=== PATIENT | female | born 1985 | race Caucasian/White ===

== ENCOUNTER 2019-12-14 12:20 | Outpatient (RCR) | payer OTHER, SELFPAY ==
--- NOTE | 2019-12-14 15:56 | PTOPEVAL ---
Thank you for referring this [facility] to [facility]. Please review, sign, date and return this plan of care PEARL. Pt referred to therapy due to ankle injury. She requires additional skilled therapy to address noted impairments from evaluation of decreased strength, decreased balance and decreased functional mobility with walking and steps. Recommend cont PT 1x/wk x 4 wk. I agree with and certify that the following plan of care is medically necessary. Referring Physician Date Attending Provider: Peewee Nj MD Referring Provider: *PT Outpatient Evaluation Start: 12/14/19 12:41 Freq: Status: Active Protocol: Document 12/14/19 12:37 CAP (Rec: 12/14/19 13:24 CAP [id number]) Therapy Assessment Status Assessment Status Assessment Status Evaluation Outpatient Past Medical History Neurological History Hx Migraine Yes Evaluation Information Problem Diagnosis right ankle sprain Onset 10/19/19 Cause fall Subjective Information She sprained her ankle when Query Text:As Reported By Patient/ she sliped on ice landing on Family her foot. She landed on the outside of her right ankle. She was seen at [facility] for initial x-ray, then to [facility] 2 days later. She was given predison and 800 mg motrin. She was placed in a walking boot. She wore the boot for 2 wk. She had a f/u with the othropedic MD. She was given an aircast to wear, but she is not wearing the brace. She reports her biggest problem is pain at the end of the day and stiffness in the am. She performs ankle motion to improve pain. She descends step now sideways . She denies problems ascending steps or performing normal walking activities. Diagnostic Tests X-Rays For This Problem Yes: bone contusion Prior Level of Function Activity Level (Last 3 Months) Occupation professional Stir Activity of Daily Living Ability Independent Indoor/Home Mobility Independent Community Mobility Independent Stairs Ability Independent Cooking Yes Cleaning Yes Laundry Yes
--- NOTE | 2020-01-20 11:46 | PCPTNOTE ---
Admitting Provider: Attending Provider: Peewee Nj MD Patient:Ashli Nina Date of :1985 Patient has not returned for any further treatments since 12/14/2019, therefore she will be discharged from therapy at this time. The goals have not been achieved. Thank you for referring this patient to [facility]. Please review, sign, date and return this discharge summary PEARL. I have been updated about the patient's current status and I agree with discharge from the above service at this time. Referring Physician Date
== END 2020-01-20 12:37 | disposition hospice, home (50) ==
LOC: ANHPT 12:20
PROVIDERS: Visit Provider Orthopaedic Surgery
DX: S93.401D Sprain of unspecified ligament of right ankle, subsequent encounter (principal)
CPT/HCPCS: 97161

== ENCOUNTER 2021-07-22 13:13 | Emergency (ER) | payer OTHER, SELFPAY ==
[2021-07-22 13:27] VITALS: BP 98/63; PULSE 89; RESP 18; TEMP 36.5; O2SAT 100
--- NOTE | 2021-07-22 14:47 | ED.URI ---
HPI - URI/Sore Throat General Chief Complaint: Upper Respiratory Infection Stated Complaint: Congestion,Ear Pain Time Seen by Provider: 07/22/21 14:45 Source: patient, RN notes reviewed and old records reviewed Mode of arrival: ambulatory Limitations: no limitations History of Present Illness HPI Narrative: 36 year old female presents to [facility] care with complaints of sinus congestion and nasal drainage with left ear pain for the past week duration.Patient denies any known fevers, chills or sweats.demies any sore throat or any acute cough. Patient states her sinuses are messed up. She reports that she has taken some OTC sinus medication without improvement. MD elicited complaint: rhinorrhea, nasal congestion and other (left ear pain) Related Data Home Medications Medication Instructions Recorded Confirmed albuterol sulfate 90 mcg INHALATION BID 11/15/19 11/15/19 liraglutide [Victoza 2-Néstor] mg SUBCUT 07/22/21 07/22/21 terbinafine HCl mg 07/22/21 Allergies Allergy/AdvReac Type Severity Reaction Status Date / Time Penicillins Allergy Intermediate Hives / Verified 07/22/21 14:36 Red Face amoxicillin Allergy Mild Unknown Verified 07/22/21 14:36 clavulanic acid Allergy Mild Unknown Verified 07/22/21 14:36 sodium fluoride Allergy Unknown Unknown Verified 07/22/21 14:36 theraflu Allergy Intermediate Unknown Uncoded 07/22/21 14:36 Review of Systems Review of Systems: CONSTITUTIONAL: Denies fever, chills, or sweats. EYES: Denies visual changes, redness, or discharge. ENT: positive for rhinorrhea, congestion,no sore throat,positive for left ear pain and pressure CARDIOVASCULAR: Denies chest pain, palpitations, or edema. RESPIRATORY: Denies cough or dyspnea. GASTROINTESTINAL: Denies abdominal pain, nausea, vomiting, or diarrhea. GENITOURINARY: Denies dysuria or hematuria. SKIN: Denies rash or itching. MUSCULOSKELETAL: Denies back pain, joint pain, or myalgia. NEUROLOGIC: Denies headache, numbness, or weakness. PSYCHIATRIC: Denies anxiety or depression. All systems reviewed & are unremarkable except as noted in HPI and below PMFSH Past Medical History Medical History (Updated 07/24/21 @ 15:18 by Jacquelyn Leal NP) Ankle sprain Asthma Migraine Nail fungus Surgical History Surgical History (Updated 07/24/21 @ 15:17 by Jacquelyn Leal NP) H/O tubal ligation Family History Family History Mother Hypertension Father Cancer Social History Social History Additional smoking assessment comments: Smoked for 12 years Alcohol intake: current Alcohol use details: Occasional Additional living arrangements comments: Fianc? Antionio Additional occupation/education comments: Self employed Gender identity (if verbalized by the patient): Female Comments At time of signature, agree with nursing past medical, surgical, social and family history. There is no relevant family history pertinent to the presenting complaint Exam Narrative: GENERAL: Well-appearing, well-nourished, and in no acute distress. HEAD: Normocephalic, atraumatic. EYES: PERRLA and EOMI. ENT: Nares mild redness,clear rhinorrhea no epistaxis. Mucous membranes moist.TM's normal with good light reflex, left ear canal crusted and excoriated with mild swelling, throat with some redness no lesions or exudates, no tonsil swelling, post nasal drainage NECK: Supple.no lymphadenopathy CHEST: Clear to auscultation. No respiratory distress.no tachypnea, or acute cough SAO2 100% on room air. HEART: Regular rate and rhythm. No murmur heard. Normal peripheral pulses. ABDOMEN: Soft, nontender, nondistended, normal active bowel sounds. EXTREMITIES: Normal range of motion. No edema. SKIN: Warm, dry, no rash. NEURO: No focal deficits. Alert and oriented x3. Course Vital Signs Vital signs: Vital Signs Temperature 36.5 C 07/22/21 13
== END 2021-07-22 15:14 | disposition home or self-care (01) ==
PROVIDERS: Emergency Provider Registered Nurse; PCP Family Medicine
DX: J06.9 Acute upper respiratory infection, unspecified (principal); H60.90 Unspecified otitis externa, unspecified ear
CPT/HCPCS: 99213; G0463

== ENCOUNTER 2021-11-04 17:54 | Emergency (ER) | payer OTHER, SELFPAY ==
--- NOTE | ~2021-11-04 | XR_ITS ---
EXAMINATION: XR ankle RT min 3V EXAM DATE: 11/04/2021 18:16 INDICATION: Fall, Rt Ankle Pain, Laterally Swelling . Initial encounter. TECHNIQUE: Right ankle frontal, lateral and oblique projections obtained and reviewed. Comparison is made to prior examination from 11/08/2019. FINDINGS: The right ankle mortise appears intact. There are no acute fractures or dislocations iden tified. There is no subcutaneous gas. The soft tissue is unremarkable. There are no radiopaque fo reign bodies. IMPRESSION: 1. XR ankle RT min 3V exam without acute osseous findings. Reviewed, dictated and finalized at location A. R WOOD SAWYER
--- NOTE | ~2021-11-04 | XR_ITS ---
EXAMINATION: XR ankle LT min 3V EXAM DATE: 11/04/2021 18:16 INDICATION: Fall, Twisting Lt Ankle, Lateral Swelling. TECHNIQUE: Left ankle frontal, lateral and oblique projections obtained and reviewed. There is no pr ior study for comparison. FINDINGS: The left ankle mortise appears intact. There are no acute fractures or dislocations ident ified. There is no subcutaneous gas. There is soft tissue swelling over the ankle anterolaterally. There are no radiopaque foreign bodies. IMPRESSION: 1. XR ankle LT min 3V exam without acute osseous findings. 2. Soft tissue swelling. Reviewed, dictated and finalized at location A. ATION MANAGER
[2021-11-04 18:04] VITALS: BP 113/70; PULSE 75; RESP 16; TEMP 37.3; O2SAT 99
--- NOTE | 2021-11-04 18:54 | ED.LOWEXIN ---
HPI - Extremity Injury (Lower) General Chief Complaint: Extremity Injury, Lower Stated Complaint: Left and right ankle Pain Time Seen by Provider: 11/04/21 18:54 Source: patient, RN notes reviewed and old records reviewed Mode of arrival: ambulatory Limitations: no limitations History of Present Illness HPI Narrative: 36-year-old female presents to the [facility] with complaints of bilateral ankle pain after falling out of a door. Had been soaking her ankle. Swelling noted. Full range of motion with positive pedal pulses. Sensation intact and capillary refill under 2 seconds. Denies hitting head. No loss of consciousness. No back pain, chest pain or abdominal pain Related Data Allergies Allergy/AdvReac Type Severity Reaction Status Date / Time Penicillins Allergy Intermediate Hives / Verified 07/22/21 14:36 Red Face amoxicillin Allergy Mild Unknown Verified 07/22/21 14:36 clavulanic acid Allergy Mild Unknown Verified 07/22/21 14:36 sodium fluoride Allergy Unknown Unknown Verified 07/22/21 14:36 theraflu Allergy Intermediate Unknown Uncoded 07/22/21 14:36 Review of Systems Review of Systems: All systems reviewed & are unremarkable except as noted in HPI and below Constitutional: Constitutional: Reports no additional constitutional complaints, Denies chills and Denies fever(s) Eyes: Eyes: Reports no additional eye complaints ENT: Reports system reviewed and no additional complaints, except as documented Cardiovascular: Cardiovascular: Reports no additional cardiovascular complaints and Denies chest pain Respiratory: Respiratory: Reports no additional respiratory complaints, Denies cough and Denies dyspnea Gastrointestinal: Gastrointestinal: Reports no additional gastrointestinal complaints, Denies abdominal pain, Denies nausea and Denies vomiting Musculoskeletal: Musculoskeletal: Reports as per HPI, Reports arthralgias (Left and right ankle) and Reports joint swelling (Left lateral) Integumentary/Breasts: Skin/Breast: Reports system reviewed and no additional complaints, except as docu and Denies rash Neurologic: Reports system reviewed and no additional complaints, except as documented, Denies headache(s), Denies focal weakness, Denies numbness and Denies weakness Psychiatric: Psychiatric: Reports no additional psychiatric complaints Allergic/Immunologic: Allergic/Immunologic: Reports no additional allergic/immunologic complaints PMFSH Past Medical History Medical History Ankle sprain Asthma Migraine Nail fungus Surgical History Surgical History H/O tubal ligation Family History Family History Mother Hypertension Father Cancer Social History Social History Additional smoking assessment comments: Smoked for 12 years Alcohol intake: current Alcohol use details: Occasional Additional living arrangements comments: Fianc? Antionio Additional occupation/education comments: Self employed Gender identity (if verbalized by the patient): Female Comments At the time of my signature, I reviewed and agree with the nursing past medical, surgical, social, and family history. There is no relevant family history pertinent to the patient complaint. Exam Const: General: healthy appearing, no acute distress and alert Nutritional Appearance: well nourished Orientation/consciousness: patient oriented x3 Limitations: no limitations HENMT: Head: normal to inspection Eyes: Pupils: Equal, round and reactive pupils present Neck: Neck: normal visual inspection, no lymphadenopathy and no meningeal signs Chest: Chest palpation & inspection: normal inspection of the chest Resp: Effort & Inspection: normal respiratory effort Auscultation: clear to auscultation bilaterally Cardio: Rate: regular rate Rhy
== END 2021-11-04 19:10 | disposition home or self-care (01) ==
PROVIDERS: Emergency Provider Nurse Practitioner; PCP Family Medicine
DX: S93.402A Sprain of unspecified ligament of left ankle, initial encounter (principal); S93.401A Sprain of unspecified ligament of right ankle, initial encounter; W19.XXXA Unspecified fall, initial encounter; J45.909 Unspecified asthma, uncomplicated; Z87.891 Personal history of nicotine dependence
CPT/HCPCS: 73610; 99214; G0463

== ENCOUNTER 2022-05-13 15:05 | Emergency (ER) | payer OTHER, SELFPAY ==
[2022-05-13 15:14] VITALS: BP 107/65; PULSE 86; RESP 16; TEMP 37.1; O2SAT 99
--- NOTE | 2022-05-13 15:17 | ED.GENADULT ---
HPI - General Adult General Chief complaint: Unspecified Stated complaint: right breast pain Time Seen by Provider: 05/13/22 15:17 Source: patient, RN notes reviewed and old records reviewed Mode of arrival: ambulatory Limitations: no limitations History of Present Illness HPI narrative: 37-year-old female presents to the [facility] with complaints of left breast discomfort. Patient states that her breast started itching on Thursday. Reports she has a history of the same, had a mammogram and ultrasound was referred to surgery. Never followed up with general surgery Last time had similar was January 2022 Related Data Home Medications Medication Instructions Recorded Confirmed clonazepam 0.5 mg tablet 1 tablet PO BID 05/13/22 05/13/22 escitalopram oxalate 5 mg tablet 1 tablet PO DAILY 05/13/22 05/13/22 famotidine 20 mg tablet 1 tablet PO BID 05/13/22 05/13/22 liraglutide 0.6 mg/0.1 mL (18 mg/3 1 ea subcut DAILY 05/13/22 05/13/22 mL) subcutaneous pen injector ([employer] 2-Néstor) topiramate 100 mg tablet 1 tablet PO DAILY 05/13/22 05/13/22 Allergies Allergy/AdvReac Type Severity Reaction Status Date / Time Penicillins Allergy Intermediate Hives / Verified 05/13/22 15:13 Red Face amoxicillin Allergy Mild Unknown Verified 05/13/22 15:13 clavulanic acid Allergy Mild Unknown Verified 05/13/22 15:13 acetaminophen Allergy Unknown Unknown Verified 05/13/22 15:14 [From Theraflu Flu-Chest Congestion] chlorpheniramine Allergy Unknown Unknown Verified 05/13/22 15:14 [From Theraflu Flu-Sore Throat] guaifenesin Allergy Unknown Unknown Verified 05/13/22 15:14 [From Theraflu Flu-Chest Congestion] pheniramine Allergy Unknown Unknown Verified 05/13/22 15:14 [From Theraflu Flu-Sore Throat] phenylephrine Allergy Unknown Unknown Verified 05/13/22 15:14 [From Theraflu Flu-Sore Throat] pseudoephedrine Allergy Unknown Unknown Verified 05/13/22 15:14 [From Theraflu Flu-Sore Throat] sodium fluoride Allergy Unknown Unknown Verified 05/13/22 15:13 Review of Systems Review of Systems: All systems reviewed & are unremarkable except as noted in HPI and below Constitutional: Constitutional: Reports no additional constitutional complaints, Denies chills and Denies fever(s) Eyes: Eyes: Reports no additional eye complaints ENT: Reports system reviewed and no additional complaints, except as documented Cardiovascular: Cardiovascular: Reports no additional cardiovascular complaints Respiratory: Respiratory: Reports no additional respiratory complaints Gastrointestinal: Gastrointestinal: Reports no additional gastrointestinal complaints Musculoskeletal: Musculoskeletal: Reports no additional musculoskeletal complaints Integumentary/Breasts: Skin/Breast: Reports as per HPI Neurologic: Reports system reviewed and no additional complaints, except as documented Psychiatric: Psychiatric: Reports no additional psychiatric complaints Allergic/Immunologic: Allergic/Immunologic: Reports no additional allergic/immunologic complaints PMF Past Medical History Medical History Ankle sprain Asthma Migraine Nail fungus Surgical History Surgical History H/O tubal ligation Family History Family History Mother Hypertension Father Cancer Social History Social History Additional smoking assessment comments: Smoked for 12 years Alcohol intake: current Alcohol use details: Occasional Additional living arrangements comments: Fianc? Antionio Additional occupation/education comments: Self employed Gender identity (if verbalized by the patient): Female Comments At the time of my signature, I reviewed and agree with the nursing past medical, surgical, social, and f
[2022-05-13 15:19] VITALS: BP 107/65; PULSE 86; RESP 16; TEMP 37.1; O2SAT 99
== END 2022-05-13 15:55 | disposition home or self-care (01) ==
PROVIDERS: Emergency Provider Nurse Practitioner
DX: N61.0 Mastitis without abscess (principal); J45.909 Unspecified asthma, uncomplicated; Z87.891 Personal history of nicotine dependence
CPT/HCPCS: 99213; G0463

== ENCOUNTER 2025-05-08 08:25 | Emergency (ER) | payer OTHER, SELFPAY ==
[2025-05-08 08:35] VITALS: BP 119/81; PULSE 68; RESP 12; TEMP 36.5; O2SAT 99
--- NOTE | 2025-05-08 08:35 | ED_ITS ---
HPI - General Adult General Chief complaint: Urogenital-Female Stated complaint: Right Side Hip/Flank Pain Related Data Home Medications ?Medication ?Instructions ?Recorded ?Confirmed ?Last Taken ?Type clonazepam 0.5 mg tablet 1 tablet PO BID 05/13/22 05/13/22 Unknown History escitalopram oxalate 5 mg tablet 1 tablet PO DAILY 05/13/22 05/13/22 Unknown History famotidine 20 mg tablet 1 tablet PO BID 05/13/22 05/13/22 Unknown History liraglutide 0.6 mg/0.1 mL (18 mg/3 1 ea subcut DAILY 05/13/22 05/13/22 Unknown History mL) subcutaneous pen injector ([employer] 2-Néstor) topiramate 100 mg tablet 1 tablet PO DAILY 05/13/22 05/13/22 Unknown History Allergies Allergy/AdvReac Type Severity Reaction Status Date / Time Penicillins Allergy Intermediate Hives / Verified 05/13/22 15:13 Red Face amoxicillin Allergy Mild Unknown Verified 05/13/22 15:13 clavulanic acid Allergy Mild Unknown Verified 05/13/22 15:13 acetaminophen (From Theraflu Allergy Unknown Unknown Verified 05/13/22 15:14 Flu-Chest Congestion) chlorpheniramine (From Allergy Unknown Unknown Verified 05/13/22 15:14 Theraflu Flu-Sore Throat) guaifenesin (From Theraflu Allergy Unknown Unknown Verified 05/13/22 15:14 Flu-Chest Congestion) pheniramine (From Theraflu Allergy Unknown Unknown Verified 05/13/22 15:14 Flu-Sore Throat) phenylephrine (From Theraflu Allergy Unknown Unknown Verified 05/13/22 15:14 Flu-Sore Throat) pseudoephedrine (From Allergy Unknown Unknown Verified 05/13/22 15:14 Theraflu Flu-Sore Throat) sodium fluoride Allergy Unknown Unknown Verified 05/13/22 15:13 [facility] Past Medical History Medical History Ankle sprain Asthma Migraine Nail fungus Surgical History Surgical History H/O tubal ligation Family History Family History Mother Hypertension Father Cancer Social History Social History Additional smoking assessment comments: Smoked for 12 years Alcohol intake: current Alcohol use details: Occasional Living arrangements: with family Additional living arrangements comments: Fianc? Antionio Occupation/Education: occupation Additional occupation/education comments: Self employed Gender identity (if verbalized by the patient): Female Discharge Plan Discharge Patient Language: Romanian Prescriptions: No Action clonazepam 0.5 mg tablet 1 tablet PO BID famotidine 20 mg tablet 1 tablet PO BID topiramate 100 mg tablet 1 tablet PO DAILY escitalopram oxalate 5 mg tablet 1 tablet PO DAILY Victoza 2-Néstor 0.6 mg/0.1 mL (18 mg/3 mL) pen injector 1 ea SUBCUT DAILY clindamycin HCl 300 mg capsule 300 mg PO Q8H 7 Days Qty: 21 0RF Follow-up/Referrals: PHYSICIAN NOT ON STAFF,NONSTAFF [Primary Care Provider] -
[2025-05-08 08:44] LABS: EDUAAPPEAR Clear; EDUABILI Negative (Negative); EDUABLOOD Negative (Negative); EDUACOLOR1 Yellow; EDUAGLUCOSE Negative (Negative); EDUAKETONE Negative (Negative); EDUALEUKO Negative (Negative); EDUANITRATE Negative (Negative); EDUAPH 5.5; EDUAPROTEIN Negative (Negative); EDUASPGRAVITY 1.025; EDUAUROBILI 0.2
--- NOTE | 2025-05-08 08:59 | ED_ITS ---
HPI - Back Pain/Injury General Chief Complaint: Back Pain/Injury Stated Complaint: Right Side Hip/Flank Pain Time Seen by Provider: 05/08/25 09:00 Source: patient and RN notes reviewed Mode of arrival: ambulatory Limitations: no limitations History of Present Illness HPI Narrative: 40-year-old female presents with concern for right low back pain. She reports history of sciatica, however this pain is not radiating down the right side like it usually does that originates same place. She denies any injury or trauma. 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 She reports pain is been for about a week. She denies any loss of bowel or bladder function, perianal anesthesia, weakness in any extremity, abdominal pain, fever. She reports trying meloxicam without relief MD elicited complaint: back pain Related Data Home Medications ?Medication ?Instructions ?Recorded ?Confirmed ?Last Taken ?Type clonazepam 0.5 mg tablet 1 tablet PO BID 05/13/22 05/13/22 Unknown History escitalopram oxalate 5 mg tablet 1 tablet PO DAILY 05/13/22 05/13/22 Unknown History famotidine 20 mg tablet 1 tablet PO BID 05/13/22 05/13/22 Unknown History liraglutide 0.6 mg/0.1 mL (18 mg/3 1 ea subcut DAILY 05/13/22 05/13/22 Unknown History mL) subcutaneous pen injector ([employer] 2-Néstor) topiramate 100 mg tablet 1 tablet PO DAILY 05/13/22 05/13/22 Unknown History albuterol sulfate 90 mcg/actuation inhalation 05/08/25 Unknown History aerosol inhaler Allergies Allergy/AdvReac Type Severity Reaction Status Date / Time Penicillins Allergy Intermediate Hives / Verified 05/13/22 15:13 Red Face amoxicillin Allergy Mild Unknown Verified 05/13/22 15:13 clavulanic acid Allergy Mild Unknown Verified 05/13/22 15:13 acetaminophen (From Theraflu Allergy Unknown Unknown Verified 05/13/22 15:14 Flu-Chest Congestion) chlorpheniramine (From Allergy Unknown Unknown Verified 05/13/22 15:14 Theraflu Flu-Sore Throat) guaifenesin (From Theraflu Allergy Unknown Unknown Verified 05/13/22 15:14 Flu-Chest Congestion) pheniramine (From Theraflu Allergy Unknown Unknown Verified 05/13/22 15:14 Flu-Sore Throat) phenylephrine (From Theraflu Allergy Unknown Unknown Verified 05/13/22 15:14 Flu-Sore Throat) pseudoephedrine (From Allergy Unknown Unknown Verified 05/13/22 15:14 Theraflu Flu-Sore Throat) sodium fluoride Allergy Unknown Unknown Verified 05/13/22 15:13 Review of Systems Review of Systems: CONSTITUTIONAL: Denies malaise, chills, sweats, or fever. CARDIOVASCULAR: Denies chest pain, palpitations, or edema. RESPIRATORY: Denies cough or dyspnea. GASTROINTESTINAL: Denies abdominal pain, nausea, vomiting, diarrhea, loss of bowel function GENITOURINARY: Denies dysuria, hematuria, frequency, loss of bladder function. SKIN: Denies rash or itching. MUSCULOSKELETAL: Reports right low back pain NEUROLOGIC: Denies numbness, weakness, or headache. All systems reviewed & are unremarkable except as noted in HPI and below PMFSH Past Medical History Medical History Ankle sprain Asthma Migraine Nail fungus Surgical History Surgical History H/O tubal ligation Family History Family History Mother Hypertension Father Cancer Social History Social History Additional smoking assessment comments: Smoked for 12 years Alcohol intake: current Alcohol use details: Occasional Living arrangements: with family Additional living arrangements comments: Fianc? Antionio Occupation/Education: occupation Additional occupation/education comments: Self employed Gender identity (if verbalized by the patient): Female Comments At time of signature, agree with nursing past medical, surgical, social and family history. There is no relevant family history pertinent to the presenting complaint Exam Narrative: GENERAL: Well-appearing, well-nourished, and in no acute distress. HEAD: Normocephalic, atraumatic. EYES: PERRLA and EOMI. NECK: Supple. No lymphadenopathy. CHEST: Clear to auscultation. No respiratory distress. HEART: Regular rate and rhythm. Distal pulses palpable and equal, cap refill <3 seconds ABDOMEN: Soft, nontender, nondistended, normal active bowel sounds, no palpable or pulsatile masses. No CVA tenderness MUSCULOSKELETAL: Normal range of motion and strength in all extremities; 5/5 strength with hip flexion and extension, dorsiflexion and extension, knee flexion and extension, plantar flexion and extension. Normal sensation in dermatomal distributions with sensitivity to light touch and pain. No midline back tenderness to palpation. No paraspinal tenderness. Transfers from lying to sitting to standing. SKIN: Warm, dry, no rash. No ecchymosis, erythema, open wounds to back. NEURO: No focal deficits. Alert and oriented x3. Normal gait. PSYCH: Normal mood and affect Course Course Emergency Course: Patient requested pain relief in the Urgent Care, ketorolac IM given Patient is aware of diagnosis, understands and agrees to treatment plan. Antic ipatory guidance given. Patient agrees to follow-up as directed and is aware of reasons to seek care at the emergency department. Portions of this record may have been created with voice recognition software Level of Care: [facility] Visit Vital Signs Vital signs: Vital Signs Temperature 97.7 F 05/08/25 08:35 Pulse Rate 68 05/08/25 08:35 Respiratory Rate 12 05/08/25 08:35 Blood Pressure 119/81 05/08/25 08:35 Pulse Oximetry 99 05/08/25 08:35 Oxygen Delivery Room Air 05/08/25 08:35 Temperature 97.7 F 05/08/25 08:35 Pulse Rate 68 05/08/25 08:35 Respiratory Rate 12 05/08/25 08:35 Blood Pressure 119/81 05/08/25 08:35 Pulse Oximetry 99 05/08/25 08:35 Oxygen Delivery Room Air 05/08/25 08:35 Reviewed. MDM - Back Pain/Injury MDM Narrative Medical decision making narrative: I evaluated this in the [facility] care. History is obtained from patient who is an independent historian and physical exam was performed.? Available medical records were reviewed. ? Exam findings and relevant testing show no acute concerns or changes; patient is non-toxic appearing and is in no distress. No risk factors or findings concerning for epidural abscess, diskitis, vertebral osteomyelitis, cord compression, cauda equina, vertebral fracture or bone malignancy, AAA, or pyelonephritis. Patient instructed to consider further imaging and workup through their primary care physician as an outpatient if symptoms persist. ? Differential diagnosis and treatment plan were discussed with the patient. Patient agrees with discussion and after shared medical decision making agrees with plan of care. All questions were answered to the patient's satisfaction. Patient is appropriate for outpatient treatment and follow-up. Lab Data Labs: Lab Results 05/08/25 Range/Units 08:40 POC Urine Color Yellow POC Urine Clarity Clear POC Urine pH 5.5 POC Ur Specif [place] 1.025 POC Urine Protein Negative (Negative) POC Ur Glucose (UA) Negative (Negative) POC Urine Ketones Negative (Negative) POC Urine Blood Negative (Negative) POC Urine Nitrite Negative (Negative) POC Urine Bilirubin Negative (Negative) POC Urine Urobilinogen 0.2 POC U Leukocyte Esteras Negative (Negative) Critical Care Time Critical Care Time Critical Care Time: No Discharge Plan Discharge Clinical Impression: Nonspecific low back pain Patient Disposition: Home Condition: Stable Instructions: Antibiotic Form, Acute Low Back Pain (ED) Additional Instructions: Please follow up with your Primary Care Doctor within 48-72 hours - call for an appointment. Walking and other gentle exercising several times a week has been shown to improve back pain; bed rest is not recommended. Take prednisone as directed, take muscle relaxers every 8 hours as needed for muscle spasm- do not drive or make any important decisions while on this medication for it can make you drowsy. You may apply ice to the area as needed. If you experience any worsening pain, swelling, numbness, weakness please go to ER. Contact your doctor or go to the emergency department if you develop problems with bladder or bowel function, weakness or loss of feeling in one or both of your legs, or any other serious concerns. Patient Language: Greek Prescriptions: New cyclobenzaprine 10 mg tablet 5 mg PO TID PRN (Reason: muscle spasm) Qty: 20 0RF prednisone 50 mg tablet 50 mg PO DAILY 5 Days Qty: 5 0RF No Action clonazepam 0.5 mg tablet 1 tablet PO BID famotidine 20 mg tablet 1 tablet PO BID topiramate 100 mg tablet 1 tablet PO DAILY escitalopram oxalate 5 mg tablet 1 tablet PO DAILY Victoza 2-Néstor 0.6 mg/0.1 mL (18 mg/3 mL) pen injector 1 ea SUBCUT DAILY albuterol sulfate 90 mcg/actuation HFA aerosol inhaler INHALATION Follow-up/Referrals: PHYSICIAN NOT ON STAFF,NONSTAFF [Primary Care Provider] - Time of Disposition: 09:10
[2025-05-08] MEDS: KETOROLAC (*BKC) 60 MG/2 ML VIAL IM (09:14)
== END 2025-05-08 09:30 | disposition home or self-care (01) ==
PROVIDERS: Emergency Provider Nurse Practitioner
DX: M54.50 Low back pain, unspecified (principal); J45.909 Unspecified asthma, uncomplicated
CPT/HCPCS: 81003; 96372; 99213; G0463; J1885

== ENCOUNTER 2025-10-25 09:23 | Emergency (ER) | payer OTHER, SELFPAY ==
--- NOTE | 2025-10-25 09:33 | ED.GENADULT ---
HPI - General Adult General Chief complaint: Abdominal Pain Stated complaint: Stomach pains Time Seen by Provider: 10/25/25 09:34 Source: patient, RN notes reviewed and old records reviewed Mode of arrival: ambulatory Limitations: no limitations History of Present Illness HPI narrative: 40-year-old female presents to the [facility] with complaints of right upper quadrant pain for 1 week. Has had nausea and had made herself vomit once which made her feel better. Has been taking Pepcid, Zofran. Patient states it feels like there is a ?knot? in her stomach. Onset (ago): week(s) (1) Related Data Home Medications ?Medication ?Instructions ?Recorded ?Confirmed ?Last Taken ?Type clonazepam 0.5 mg tablet 1 tablet PO BID 05/13/22 05/13/22 Unknown History escitalopram oxalate 5 mg tablet 1 tablet PO DAILY 05/13/22 05/13/22 Unknown History famotidine 20 mg tablet 1 tablet PO BID 05/13/22 05/13/22 Unknown History liraglutide 0.6 mg/0.1 mL (18 mg/3 1 ea subcut DAILY 05/13/22 05/13/22 Unknown History mL) subcutaneous pen injector ([employer] 2-Néstor) topiramate 100 mg tablet 1 tablet PO DAILY 05/13/22 05/13/22 Unknown History albuterol sulfate 90 mcg/actuation inhalation 05/08/25 Unknown History aerosol inhaler Allergies Allergy/AdvReac Type Severity Reaction Status Date / Time Penicillins Allergy Intermediate Hives / Verified 10/25/25 09:28 Red Face amoxicillin Allergy Mild Unknown Verified 10/25/25 09:28 clavulanic acid Allergy Mild Unknown Verified 10/25/25 09:28 acetaminophen (From Theraflu Allergy Unknown Unknown Verified 10/25/25 09:28 Flu-Chest Congestion) chlorpheniramine (From Allergy Unknown Unknown Verified 10/25/25 09:28 Theraflu Flu-Sore Throat) guaifenesin (From Theraflu Allergy Unknown Unknown Verified 10/25/25 09:28 Flu-Chest Congestion) pheniramine (From Theraflu Allergy Unknown Unknown Verified 10/25/25 09:28 Flu-Sore Throat) phenylephrine (From Theraflu Allergy Unknown Unknown Verified 10/25/25 09:28 Flu-Sore Throat) pseudoephedrine (From Allergy Unknown Unknown Verified 10/25/25 09:28 Theraflu Flu-Sore Throat) sodium fluoride Allergy Unknown Unknown Verified 10/25/25 09:28 Review of Systems Review of Systems: All systems reviewed & are unremarkable except as noted in HPI and below Constitutional: Constitutional: Reports no additional constitutional complaints ENT: Reports system reviewed and no additional complaints, except as documented Cardiovascular: Cardiovascular: Reports no additional cardiovascular complaints, Denies chest pain and Denies dyspnea Respiratory: Respiratory: Reports no additional respiratory complaints, Denies chest congestion, Denies cough and Denies dyspnea Gastrointestinal: Gastrointestinal: Reports as per HPI, Reports abdominal pain, Reports nausea, Denies odynophagia and Denies vomiting Musculoskeletal: Musculoskeletal: Reports no additional musculoskeletal complaints Integumentary/Breasts: Skin/Breast: Reports system reviewed and no additional complaints, except as docu PMFSH Past Medical History Medical History Asthma Nail fungus Migraine Ankle sprain Surgical History Surgical History H/O tubal ligation Family History Family History Mother Hypertension Father Cancer Social History Social History Additional smoking assessment comments: Smoked for 12 years Alcohol intake: current Alcohol use details: Occasional Living arrangements: with family Additional living arrangements comments: Fianc? Antionio Occupation/Education: occupation Additional occupation/education comments: Self employed Gender identity (if verbalized by the patient): Female Comments At the time of my signature, I reviewed and agree with the nursing past medical, surgical, social, and family history. There is no relevant family history pertinent to the patient complaint. Exam Const: General: cooperative, healthy appearing, comfortable, no acute distress, well developed, alert and well nourished Nutritional Appearance: well nourished and obese Orientation/consciousness: patient oriented x3 Limitations: no limitations HENMT: Head: normal to inspection Face and sinus: normal facial exam, sinuses nontender and face symmetric Mouth: Yes Normal oral and palatal mucosa present, Yes lip normal, Yes tongue normal and Yes moist mucous membranes Throat: posterior oropharynx normal, uvula midline and no uvular edema Eyes: General: appearance normal, both eyes and all related structures Alignment and Position: alignment normal Neck: Neck: normal visual inspection, full ROM, no lymphadenopathy and no meningeal signs Chest: Chest palpation & inspection: normal inspection of the chest Resp: Effort & Inspection: normal respiratory effort and able to speak in complete sentences Auscultation: clear to auscultation bilaterally, no crackles, no rales, no rhonchi and no wheezes Cardio: Rate: regular rate GI: GI Palp: Yes abdominal tenderness Auscultation: normal bowel sounds Skin: General skin exam: normal color and no rashes or lesions noted Neuro: General: patient oriented x3, gait normal, moves all extremities and no meningeal signs Cognition (Neuro): normal cognition Speech: normal speech Gait exam (Neuro): Normal gait present Extrem: General: normal to inspection, full ROM, capillary refill normal and normal gait Psych: Appearance: grossly normal and well kempt Mental Status: mental status grossly normal Speech and movement: Normal speech and movement present and Clear speech present Affect: normal affect Attitude: cooperative Course Course Level of Care: Express Care Visit Vital Signs Vital signs: Vital Signs Temperature 98.0 F 10/25/25 09:35 Pulse Rate 97 10/25/25 09:35 Respiratory Rate 16 10/25/25 09:35 Blood Pressure 134/80 10/25/25 09:35 Pulse Oximetry 99 10/25/25 09:35 Oxygen Delivery Room Air 10/25/25 09:35 Temperature 98.0 F 10/25/25 09:35 Pulse Rate 97 10/25/25 09:35 Respiratory Rate 16 10/25/25 09:35 Blood Pressure 134/80 10/25/25 09:35 Pulse Oximetry 99 10/25/25 09:35 Oxygen Delivery Room Air 10/25/25 09:35 reviewed MDM MDM Narrative Medical decision making narrative: Patient sitting in exam room. Patient is nontoxic, vitals stable. Patient presents with 1 week history of epigastric, right upper quadrant discomfort, nausea. Has not vomited, denies fevers. Through joint decision making offered patient transferred to the ER which she is declining at this time. Due to patient not being toxic discussed conservative diet, low-fat diet, OTC medications, will prescribe Prilosec. Patient reports enough Zofran. Discussed in detail signs and symptoms to proceed to the emergency room which she verbalized understanding and agreed. Discharge instructions reviewed with patient, as well as provided in writing per nursing staff. The instructions also include specific and strict return/GO TO THE ER as well as f/u information. All questions have been answered, and the patient deny any further questions with discharge and discharge plan. Some parts of this dictation were generated by voice recognition software and may contain typographical and/or grammatical inaccuracies. Differential Diagnosis Differential Diagnosis: Differential diagnostic considerations for acute abdominal pain?include surgical abdominal etiology, ischemic bowel, inflammatory bowel disease, gastritis, PUD, gastroenteritis, cardiac etiology, appendicitis, diverticulitis, bowel obstruction, kidney stone, pyelonephritis, abdominal aortic aneurysm, pancreatitis, constipation, endometriosis. Discharge Plan Discharge Clinical Impression: Right upper quadrant abdominal pain, Nausea Patient Disposition: Home Condition: Stable Instructions: Biliary Colic (ED), Low Fat Diet (ED), Abdominal Pain (ED) Additional Instructions: Keep your diet very simple. Nothing fried, greasy, spicy or highly processed. Increase her water intake, decrease the amount of caffeine and carbonation. If the symptoms get worse please proceed to the nearest emergency room Please follow-up with your doctor in 7-10 days for further evaluation, testing and treatment Patient Language: Kyrgyz Prescriptions: New omeprazole 20 mg capsule,delayed release(DR/EC) 20 mg PO DAILY Qty: 14 0RF No Action clonazepam 0.5 mg tablet 1 tablet PO BID famotidine 20 mg tablet 1 tablet PO BID topiramate 100 mg tablet 1 tablet PO DAILY escitalopram oxalate 5 mg tablet 1 tablet PO DAILY Victoza 2-Néstor 0.6 mg/0.1 mL (18 mg/3 mL) pen injector 1 ea SUBCUT DAILY albuterol sulfate 90 mcg/actuation HFA aerosol inhaler INHALATION cyclobenzaprine 10 mg tablet 5 mg PO TID PRN (Reason: muscle spasm) Qty: 20 0RF Follow-up/Referrals: PHYSICIAN NOT ON STAFF,NONSTAFF [Primary Care Provider] Stand Alone Forms: Work/School Release IP Time of Disposition: 09:52
[2025-10-25 09:35] VITALS: BP 134/80; PULSE 97; RESP 16; TEMP 36.7; O2SAT 99
== END 2025-10-25 09:58 | disposition home or self-care (01) ==
PROVIDERS: Emergency Provider Nurse Practitioner
DX: R10.11 Right upper quadrant pain (principal); R11.0 Nausea; J45.909 Unspecified asthma, uncomplicated
CPT/HCPCS: 99213; G0463